=== PATIENT | female | born 1955 | race Caucasian/White ===

== ENCOUNTER 2017-08-17 06:50 | Day surgery (SDC) | payer MEDICAID, OTHER ==
[~2017-08-17] VITALS: Ht 170.2 cm; Wt 55.8 kg
[~2017-08-17 06:50] MED LIST: DONE10TA7 PO; MEMA28CA PO; SERT50TA PO
[2017-08-17 07:48] VITALS: Ht 170.2 cm; Wt 55.8 kg
[2017-08-17 08:17] VITALS: BP 108/56; PULSE 60; RESP 40
--- NOTE | 2017-08-17 09:32 | OPPN ---
Date/Time of Note Date/Time of Note DATE: 08/17/17 TIME: 09:31 Operative Report Preoperative Diagnosis Screening Postoperative Diagnosis Internal hemorrhoids No colon neoplasm is identified Operation/Procedure Performed Colonoscopy Surgeon see signature line physician assistant surgery None Anesthesia: moderate sedation Estimated blood loss: none Transfusion Required none Specimen None Grafts/Implants none Complications none MAYRA RUSSELL MD Aug 17, 2017 09:32
[2017-08-17] MEDS ORDERED: MIDAZOLAM 1 MG/ML 2 ML INJ ONE ×2 (09:33)
[2017-08-17] MEDS ORDERED: FENTAnyl 50 MCG/ML VIAL ONE (09:34)
[2017-08-17 10:00] VITALS: BP 126/64; PULSE 70; RESP 20
--- NOTE | 2017-08-18 06:32 | GILP ---
DATE OF PROCEDURE: NAME OF PROCEDURE: Colonoscopy. SURGEON: Mayra Boston MD. PREOPERATIVE DIAGNOSIS: Screening colonoscopy. POSTOPERATIVE DIAGNOSES 1. Colonoscopy all the way to the cecum. 2. Internal hemorrhoids. 3. No colon neoplasm was identified. INDICATION FOR THE PROCEDURE: Ms. Melina Cotter is a 62-year-old female patient who was scheduled for screening colonoscopy. The procedure and possible complications are well explained to the patient. The patient understood and consented to the procedure. DESCRIPTION OF PROCEDURE: Under the influence of fentanyl and Versed, the colonoscope was carefully introduced in the rectum and under direct vision, it was advanced all the way to the cecum. FINDINGS: The patient had internal hemorrhoids. No colon neoplasm was identified. She tolerated the procedure very well and there was no complication from the procedure. At the end of the procedure, she was awake with stable vital signs and she was discharged home to the care of h er family. IMPRESSION: Please see postoperative diagnoses. PLAN: Next screening colonoscopy in 10 years. Dictated By: MAYRA RAMOS/KEVIN Conf#: [id number] DID#: [id number]
== END 2017-08-17 12:06 | disposition home or self-care (01) ==
LOC: GIL 06:50
PROVIDERS: ATTEND Internal Medicine Gastroenterology
DX: Z12.11 Encounter for screening for malignant neoplasm of colon (principal); K64.8 Other hemorrhoids
CPT/HCPCS: J2250; J3010